=== PATIENT | male | born 1985 | race Caucasian/White ===

== ENCOUNTER 2024-08-22 20:22 | Emergency (ER) | payer MEDICAID, SELFPAY ==
[2024-08-22 20:25] VITALS: BP 164/89; PULSE 87; RESP 18; TEMP 37.8; O2SAT 96; BMI 50.2
[2024-08-22] MEDS: LORazepam 2 mg/mL INJ 1 mL IM (20:37)
[2024-08-22] MEDS: ziprasidone 20 mg/mL SDV IM (20:37)
--- NOTE | 2024-08-22 20:39 | ED_ITS ---
HPI - Overdose 2 General: Chief Complaint: Overdose Stated Complaint: AMS Time Seen by Provider: 08/22/24 20:25 History of Present Illness: 38-year-old man with a history of bipola r disorder hypertension, A-fib, diabetes and morbid obesity who presents the emergency room with altered mental status after smoking marijuana and taking some sort of THC/CBD supplement. He is making animal noises and screaming. Related Data Home Medications Medication Instructions Recorded Confirmed lamotrigine 25 mg tablet 50 mg PO DAILY 06/07/24 06/07/24 Previous Rx's Medication Instructions Recorded acetaminophen 500 mg tablet 500 mg PO Q6H PRN fever or pain 06/07/24 (Tylenol Extra Strength) #30 tabs apixaban 5 mg tablet (Eliquis) 5 mg PO BID #60 tabs 06/07/24 diltiazem HCl 360 mg capsule,24 360 mg PO DAILY #30 caps 06/07/24 hr,extended release liraglutide 0.6 mg/0.1 mL (18 mg/3 1.8 mg (0.3 mL) SUBCUT DAILY #9 mL 06/07/24 mL) subcutaneous pen injector ([employer] 2-Jose Alberto) lisinopril 40 mg tablet 40 mg PO DAILY #30 tabs 06/07/24 omeprazole 40 mg capsule,delayed 40 mg PO DAILY #30 caps 06/07/24 release pregabalin 100 mg capsule 100 mg PO TID #90 caps 06/07/24 Allergies Allergy/AdvReac Type Severity Reaction Status Date / Time metformin Allergy Severe ADR-diarrhea Verified 08/22/24 20:36 and hives bupropion [From Wellbutrin] Allergy Unknown Unknown Verified 08/22/24 20:36 clonidine Allergy Unknown Unknown Verified 08/22/24 20:36 fluoxetine [From Prozac] Allergy Unknown Unknown Verified 08/22/24 20:36 gabapentin Allergy Unknown Unknown Verified 08/22/24 20:36 lurasidone [From Latuda] Allergy Unknown Unknown Verified 08/22/24 20:36 oxycodone [From Percocet] Allergy Unknown Unknown Verified 08/22/24 20:36 paroxetine [From Paxil] Allergy Unknown Unknown Verified 08/22/24 20:36 sertraline [From Zoloft] Allergy Unknown Unknown Verified 08/22/24 20:36 Review of Systems 2 General: Reports: ROS unobtainable due to mental status PFSH ED 2 PFSH: Medical History (Updated 08/23/24 @ 00:13 by Suad Newton MD) Bipolar disorder must establish with psychiatry Essential hypertension GERD (gastroesophageal reflux disease) Neuropathy Atrial fibrillation referral to cardiology Type 2 diabetes mellitus without complications Surgical History (Updated 06/07/24 @ 13:51 by Patrice Linda NP) History of surgery on arm Family History (Updated 06/07/24 @ 13:52 by Patrice Linda NP) Other Diabetes Heart disease Hyperlipidemia Hypertension Denies family history of Clotting disorder Anesthesia complication Bleeding disorder Social History (Updated 06/07/24 @ 13:53 by Patrice Linda NP) Smoking and tobacco/nicotine status: current every day tobacco/nicotine user Quit status (tobacco/nicotine): considering quitting Alcohol intake: current Alcohol intake frequency: holidays/special occasions only Substance/Drug Use: current Lives independently: Yes Marital status: Legally Number of children: 1 Current occupational status: unemployed and disabled Physical Exam 2 Narrative: EXAM NARRATIVE: General: Alert, no acute distress. Skin: Warm, dry. Head: Normocephalic, atraumatic. Neck: Supple, trachea midline. Eye: Extraocular movements are intact. Ears, nose, mouth and throat: mucosa moist. Cardiovascular: Regular, Normal peripheral perfusion. Respiratory: Lungs are clear to auscultation, respirations are non-labored, breath sounds are equal, Symmetrical chest wall expansion. Gastrointestinal: Soft, Nontender, Non distended Musculoskeletal: Normal ROM, no deformity. Neurological: Alert, No focal neurological deficit observed. Psychiatric: Patient is screaming and making animal noises Course 2 Vital Signs: Vital signs: Vital Signs Temperature 100.0 F H 08/22/24 20:25 Pulse Rate 87 08/22/24 20:25 Respiratory Rate 18 08/22/24 20:25 Blood Pressure 164/89 08/22/24 20:25 Pulse Oximetry 96 08/22/24 20:25 Oxygen Delivery Me thod Room Air 08/22/24 20:25 MDM - Overdose Medical Decision Making Lab Review: Laboratory results were reviewed and interpreted by myself the emergency room physician. - Medically cleared. - EKG shows no ischemic changes. - Blood alcohol level is negative, -Tylenol and salicylate levels are negative. - Drug screen is positive for marijuana - No signs of infection, urinalysis clear and white count is not elevated - No anemia. - BUN and creatinine are within normal limits. Assessment and plan: Anxiety reaction secondary to marijuana. - Discharged home - Discussed findings and plan with patient. Answered any questions. - All laboratory values were reviewed and interpreted personally by myself, the ER physician - All imaging was reviewed and interpreted personally by myself, the ER physician. - Evaluation and treatment of this problem were appropriate in the emergency setting Lab Data 08/22/24 22:08 08/22/24 22:33 Laboratory Results WBC 11.11 10^3/uL (3.29-11.43) 08/22/24 22:08 RBC 4.92 10^6/uL (3.85-5.65) 08/22/24 22:08 Hgb 14.10 g/dL (11.27-16.99) 08/22/24 22:08 Hct 44.0 % (37-53) 08/22/24 22:08 MCV 89.4 fl (82-101) 08/22/24 22:08 MCH 28.7 pg (27-33) 08/22/24 22:08 MCHC 32.0 g/dL (30-55) 08/22/24 22:08 RDW 13.3 % (12.1-15.1) 08/22/24 22:08 Plt Count 216 10^3/cmm (157-399) 08/22/24 22:08 MPV 11.3 fL (7.4-10.4) H 08/22/24 22:08 Neut % (Auto) 71.3 % 08/22/24 22:08 Lymph % (Auto) 21.2 % 08/22/24 22:08 Mineral % (Auto) 6.7 % 08/22/24 22:08 Eos % (Auto) 0.2 % 08/22/24 22:08 Baso % (Auto) 0.3 % 08/22/24 22:08 Neut # (Auto) 7.94 10^3/uL (1.8-7.7) H 08/22/24 22:08 Lymph # (Auto) 2.4 10^3/uL (0.8-4.8) 08/22/24 22:08 Mineral # (Auto) 0.7 10^3/uL (0.2-0.9) 08/22/24 22:08 Eos # (Auto) 0.0 10^3/uL (0.0-0.8) 08/22/24 22:08 Baso # (Auto) 0.0 10^3/uL (0.0-0.1) 08/22/24 22:08 Nucleated RBC % (auto) 0 % 08/22/24 22:08 Nucleated RBCs # 0.0 /100WBC 08/22/24 22:08 Sodium 143 mmol/L (136-145) 08/22/24 22:33 Potassium 4.1 mmol/L (3.5-5.1) 08/22/24 22:33 Chloride 105 mmol/L (98-107) 08/22/24 22: Carbon Dioxide 27 mmol/L (22-29) 08/22/24 22:33 Anion Gap 15.1 (5-19) 08/22/24 22:33 BUN 13 mg/dL (6-20) 08/22/24 22:33 Creatinine 0.8 mg/dL (0.7-1.2) 08/22/24 22:33 GFR Calculation 109.4 mL/min (90-130) 08/22/24 22:33 Glucose 114 mg/dL (65-115) 08/22/24 22:33 Calculated Osmolality 297 mOsm/kg (285-295) H 08/22/24 22:33 Calcium 9.6 mg/dL (8.5-10.5) 08/22/24 22:33 Total Bilirubin 0.2 mg/dL (0.15-1.2) 08/22/24 22:33 AST 13 U/L (0-40) 08/22/24 22:33 ALT 14 U/L (0-41) 08/22/24 22:33 Alkaline Phosphatase 103 U/L (40-130) 08/22/24 22:33 Total Protein 6.4 g/dL (6.6-8.7) L 08/22/24 22:33 Albumin 3.9 g/dL (3.5-5.2) 08/22/24 22:33 Globulin 2.5 g/dL (1.3-4.6) 08/22/24 22:33 TSH 0.68 uIU/mL (0.27-4.20) 08/22/24 22:33 Urine Color Yellow (Yellow) 08/22/24 22:59 Urine Appearance Clear (CLEAR) 08/22/24 22:59 Urine pH 6.0 (5-7) 08/22/24 22:59 Ur Specific [place] 1.009 (1.005-1.030) 08/22/24 22:59 Urine Protein 2+ (Negative) A 08/22/24 22:59 Urine Glucose (UA) Trace (Normal) H 08/22/24 22:59 Urine Ketones Negative (Negative) 08/22/24 22:59 Urine Blood Negative (Negative) 08/22/24 22:59 Urine Nitrate Negative (Negative) 08/22/24 22:59 Urine Bilirubin Negative (Negative) 08/22/24 22:59 Urine Urobilinogen 0.2 mg/dL (Negative) 08/22/24 22:59 Ur Leukocyte Esterase Negative (Negative) 08/22/24 22:59 Urine RBC 0-2 /hpf (0-2) 08/22/24 22:59 Urine WBC 0-5 /hpf (0-5) 08/22/24 22:59 Ur Squamous Epith Cells 0-5 /hpf (0-5) 08/22/24 22:59 Amorphous Sediment Not Reportable 08/22/24 22:59 Urine Bacteria None seen /hpf (NONE) 08/22/24 22:59 Hyaline Casts 0-4 /lpf H 08/22/24 22:59 Salicylates < 0.3 mg/dL (3-10) L 08/22/24 22:33 Urine Opiates Screen Negative ng/mL (Negative) 08/22/24 22:59 Acetaminophen < 5.0 ug/mL (10-30) L 08/22/24 22:33 Ur Barbiturates Screen Negative ng/mL (Negative) 08/22/24 22:59 Ur Phencyclidine Scrn Negative ng/mL (Negative) 08/22/24 22:59 Ur Amphetamines Screen Negative ng/mL (Negative) 08/22/24 22:59 U Benzodiazepines Scrn Negative ng/mL (Negative) 08/22/24 22:59 Urine Cocaine Screen Negative ng/mL (Negative) 08/22/24 22:59 U Marijuana (THC) Screen Positive ng/mL (Negative) H 08/22/24 22:59 Ethyl Alcohol < 10 mg/dL (0-10) 08/22/24 22:33 No radiology studies performed this visit Discharge Plan Discharge Patient Disposition: Home Clinical Impression: Anxiety reaction Condition: Stable Prescriptions: No Action lamotrigine 25 mg tablet 50 mg PO DAILY acetaminophen [Tylenol Extra Strength] 500 mg tablet 500 mg PO Q6H PRN (Reason: fever or pain) Qty: 30 0RF lisinopril 40 mg tablet 40 mg PO DAILY Qty: 30 2RF diltiazem HCl 360 mg capsule,extended release 24 hr 360 mg PO DAILY Qty: 30 2RF Eliquis 5 mg tablet 5 mg PO BID Qty: 60 2RF pregabalin 100 mg capsule 100 mg PO TID Qty: 90 2RF omeprazole 40 mg capsule,delayed release(DR/EC) 40 mg PO DAILY Qty: 30 2RF liraglutide [[employer] 2-Jose Alberto] 0.6 mg/0.1 mL (18 mg/3 mL) pen injector 1.8 mg SUBCUT DAILY Qty: 9 2RF Rx Instructions: allergic to metformin Discharge Orders: Discharge ED (Routine); Ordered 08/23/24 Ordered By: Suad Newton Referrals: Patrice Linda FLAP MAKER [Primary Care Provider] - Discharge Diet: Usual diet Discharge Activity: Increase activity as tolerated Patient Instructions: Opioid Safety, Pain Management Activity Restrictions/Additional Instructions: Thank you for choosing [facility] for your healthcare needs today. Please realize this is an emergency room and that we are providing you with a medical screening exam and this may not be complete and all inclusive of all the testing and or work up that you may need to determine your ailment or severity of your illness. You have been screened and evaluated and felt safe for discharge. Health conditions do change or evolve sometimes and as such it is important that you follow up with your Primary Doctor to be re checked, 3-5 days is a general good time frame for follow up. You are always welcome to return to the ED for re assessment if your symptoms are worsening or you have new concerns Coding Level of Care Code ED Trader Fixed Income for Redd Clarke
[2024-08-22 21:50] VITALS: BP 155/86; PULSE 70; O2SAT 97
[2024-08-22 22:17] LABS: Basophils % 0.3 %; Eosinophils % 0.2 %; Lymphocytes # 2.4 10^3/uL (0.8-4.8); Lymphocytes % 21.2 %; Mean Corpuscular Hemoglobin 28.7 pg (27-33); Mean Corpuscular Volume 89.4 fl (82-101); Mean Platelet Volume 11.3 fL (7.4-10.4); Monocytes # 0.7 10^3/uL (0.2-0.9); Monocytes % 6.7 %; Neutrophils # 7.94 10^3/uL (1.8-7.7); Neutrophils % 71.3 %; Nucleated Red Blood Cells % 0 %; Platelet Count 216 10^3/cmm (157-399); Red Blood Count 4.92 10^6/uL (3.85-5.65); Red Cell Distribution Width 13.3 % (12.1-15.1); White Blood Count 11.11 10^3/uL (3.29-11.43)
[2024-08-22 23:06] LABS: Bilirubin Urine Negative (Negative); Blood Urine Negative (Negative); Glucose Urine UA Trace (Normal); Ketones Urine Negative (Negative); Leukocyte Esterase Urine Negative (Negative); Nitrate Urine Negative (Negative); Protein Urine 2+ (Negative); Specific Gravity, Urine 1.009 (1.005-1.030); Urine Appearance Clear (CLEAR); Urine Color Yellow (Yellow); Urobilinogen Urine 0.2 mg/dL (Negative)
[2024-08-22 23:08] LABS: Alanine Aminotransferase 14 U/L (0-41); Albumin Level 3.9 g/dL (3.5-5.2); Alcohol Level < 10 mg/dL (0-10); Alkaline Phosphatase 103 U/L (40-130); Anion Gap 15.1 (5-19); Aspartate Amino Transferase 13 U/L (0-40); Blood Urea Nitrogen 13 mg/dL (6-20); Calcium 9.6 mg/dL (8.5-10.5); Carbon Dioxide 27 mmol/L (22-29); Chloride 105 mmol/L (98-107); Creatinine Clr Calc Pharmacy 193.7412; Globulin 2.5 g/dL (1.3-4.6); Glomerular Filtration Rate 109.4 mL/min (90-130); Glucose 114 mg/dL (65-115); Osmolality Calculated 297 mOsm/kg (285-295); Potassium 4.1 mmol/L (3.5-5.1); Salicylate < 0.3 mg/dL (3-10); Sodium 143 mmol/L (136-145); Thyroid Stimulating Hormone 0.68 uIU/mL (0.27-4.20); Total Bilirubin 0.2 mg/dL (0.15-1.2); Total Protein 6.4 g/dL (6.6-8.7)
[2024-08-22 23:11] LABS: Bacteria Urine None Seen /hpf; Hyaline Casts Urine 0-4 /lpf; RBC Urine 0-2 /hpf (0-2); Squamous Epithelial Cell Urine 0-5 /hpf (0-5); WBC Urine 0-5 /hpf (0-5)
[2024-08-22 23:14] LABS: Amphetamines Screen Urine Negative (Negative); Barbiturates Screen Urine Negative (Negative); Benzodiazepines Screen Urine Negative (Negative); Cocaine Screen Urine Negative (Negative); Opiate Screen Urine Negative (Negative); PCP Screen Urine Negative (Negative); THC Screen Urine Positive (Negative)
[2024-08-22 23:45] LABS: Acetaminophen < 5.0 ug/mL (10-30)
[2024-08-23 04:42] VITALS: BP 145/6; PULSE 78; O2SAT 98
== END 2024-08-23 04:33 | disposition home or self-care (01) ==
PROVIDERS: Emergency Provider Emergency Medicine; PCP Clinical Nurse Specialist Adult Health
DX: F41.1 Generalized anxiety disorder (principal); Z79.01 Long term (current) use of anticoagulants; Z72.0 Tobacco use; I10 Essential (primary) hypertension; E11.40 Type 2 diabetes mellitus with diabetic neuropathy, unspecified
CPT/HCPCS: 36415; 80053; 80306; 80307; 81001; 84443; 85025; 96372; 99284; J2060; J3486

== ENCOUNTER 2024-08-29 16:12 | Outpatient (CLI) | payer MEDICAID, SELFPAY ==
--- NOTE | 2024-08-29 16:19 | XR_ITS ---
WS: [id number] XR ankle LT min 3V* [id number] REASON FOR EXAM: ankle pain FINDINGS: Significant soft tissue swelling over the lateral malleolus. No acute fracture is identified. Bony changes of the medial malleolus compatible with old medial collateral ligamentous injury. No acu te fracture. The joint spaces are intact and well preserved. XR/XR ankle LT min 3V* [id number] IMPRESSION: Soft tissue swelling with no acute fracture or joint abnormality.
== END 2024-08-29 16:13 | disposition home or self-care (01) ==
LOC: RAD 16:18
PROVIDERS: PCP Clinical Nurse Specialist Adult Health; Visit Provider Family Medicine
DX: M25.572 Pain in left ankle and joints of left foot (principal); R93.6 Abnormal findings on diagnostic imaging of limbs
CPT/HCPCS: 73610

== ENCOUNTER → 2024-09-28 09:34 | Outpatient (BNVA) | payer MEDICAID, SELFPAY | PROVIDERS: PCP Clinical Nurse Specialist Adult Health; Visit Provider Podiatrist Foot & Ankle Surgery | DX: E11.8 Type 2 diabetes mellitus with unspecified complications (principal); S93.402A Sprain of unspecified ligament of left ankle, initial encounter; W00.0XXA Fall on same level due to ice and snow, initial encounter | CPT/HCPCS: 99203 ==

== ENCOUNTER 2024-10-18 15:17 | Outpatient (CLI) | payer MEDICAID, SELFPAY ==
--- NOTE | 2024-10-18 16:19 | XR_ITS ---
WS: [id number] XR chest 2V* [id number] REASON FOR EXAM: MUSCULOSKELETAL CHEST PAIN FINDINGS: Heart and mediastinum are within normal limits. Calcified granulomas disease in both hemithoraces. No acute pulmonary parenchymal or pleural abnormality is identified. Bony thorax is intact without focal abnormality. XR/XR chest 2V* [id number] IMPRESSION: No acute chest abnormality.
== END 2024-10-18 15:18 | disposition home or self-care (01) ==
LOC: RAD 15:21
PROVIDERS: PCP Clinical Nurse Specialist Adult Health
DX: R07.89 Other chest pain (principal); D71 Functional disorders of polymorphonuclear neutrophils
CPT/HCPCS: 71046

== ENCOUNTER 2024-11-27 07:04 | Outpatient (CLI) | payer MEDICAID, SELFPAY ==
--- NOTE | 2024-11-27 07:11 | USCV_ITS ---
Marcel Corbett Age: 38 Gender: M : 1985 Exam Date: 11/27/2024 07:38 Ordering Phys: November BOTTOM BRUSHER Technologist: Exam Location: [facility] Indication: sob cariomyopathy BP: 159 / 80 HR: 146 Rhythm: Sinus Technical Quality: Adequate MEASUREMENTS (Male / Female) Normal Values 2D ECHO LV Diastolic Diameter PLAX 5.0 cm 4.2 - 5.9 / 3.9 - 5.3 cm IVS Diastolic Thickness 1.5 cm 0.6 - 1.0 / 0.6 - 0.9 cm IVS Systolic Thickness 2.0 cm LVPW Diastolic Thickness 1.3 cm 0.6 - 1.0 / 0.6 - 0.9 cm LVPW Systolic Thickness 2.2 cm LVOT Diameter 2.1 cm LV Ejection Fraction 2D Teich 69.4 % LV Ejection Fraction MOD 4C 62.2 % LV Ejection Fraction MOD 2C 57.9 % LV Ejection Fraction 2C AL 58.1 % LA Diameter 4.8 cm Aorta at Sinotubular Diameter 3.6 cm M-MODE LA Ao Ratio MM 1.7 AV Cusp Separation MM 2.5 cm DOPPLER AV Peak Velocity 100.3 cm/s LVOT Peak Velocity 80.0 cm/s AV Area Cont Eq vti 3.5 cm squared AV Area Cont Eq pk 2.8 cm squared MV Peak Velocity 121.0 cm/s MV Area PHT 3.5 cm squared Mitral E to A Ratio 1.1 TV Peak Velocity 190.0 cm/s TR Peak Velocity 247.0 cm/s TR Peak Gradient 24.4 mmHg TV Peak E Velocity 85.0 cm/s PV Peak Velocity 152.0 cm/s FINDINGS Left Ventricle Normal left ventricular size, systolic function and wall thickness, with no regional wall motion abnormalities. Left ventricular ejection fraction is estimated at 60 %. Grade I/IV diastolic dysfunction (abnormal relaxation filling pattern), normal to mildly elevated filling pressures. Right Ventricle Normal right ventricular size and systolic function. Right Atrium The right atrium is normal in size. Left Atrium The left atrium is normal in size. Mitral Valve Mitral valve not well visualized. Aortic Valve Aortic valve not well visualized. Tricuspid Valve Not well visualized Pulmonic Valve Pulmonic valve not well visualized. Pericardium Normal pericardium without effusion. Aorta Normal ascending aorta dimension. IVC The inferior vena cava appears normal. CONCLUSIONS Normal left ventricular size, systolic function and wall thickness, with no regional wall motion abnormalities. Left ventricular ejection fraction is estimated at 60 %. Grade I/IV diastolic dysfunction (abnormal relaxation filling pattern), normal to mildly elevated filling pressures. Due to poor quality images valves cannot be well visualized. There is no pericardial effusion. Right atrial pressure is around 5 mm of mercury. Jennifer Jeff MD (Electronically Signed) Final Date: 10 December 2024 16:04 S
--- NOTE | 2024-11-27 07:42 | US_ITS ---
WS: [id number] ULTRASOUND SOFT TISSUES RIGHT neck HISTORY: Nontoxic Goiter COMPARISON: None available. TECHNIQUE: 2-D and color Doppler imaging is submitted. No soft tissue masses identified by ultrasound. This may be due to body habitus. The ultrasound in the region of the thyroid is very limited. US/US soft tissue head neck [id number] IMPRESSION: No neck mass identified by ultrasound.
== END 2024-11-27 07:05 | disposition home or self-care (01) ==
PROVIDERS: PCP Clinical Nurse Specialist Adult Health
DX: E04.9 Nontoxic goiter, unspecified (principal); I51.7 Cardiomegaly; R93.1 Abnormal findings on diagnostic imaging of heart and coronary circulation
CPT/HCPCS: 76536; C8929

== ENCOUNTER → 2025-07-30 09:55 | Outpatient (BNVA) | payer MEDICAID, SELFPAY | PROVIDERS: PCP Family Medicine; Visit Provider Internal Medicine Cardiovascular Disease | DX: I48.0 Paroxysmal atrial fibrillation (principal); Z79.01 Long term (current) use of anticoagulants; Z01.810 Encounter for preprocedural cardiovascular examination; E11.9 Type 2 diabetes mellitus without complications; Z79.85 Long-term (current) use of injectable non-insulin antidiabetic drugs; F17.210 Nicotine dependence, cigarettes, uncomplicated; R07.9 Chest pain, unspecified; I49.8 Other specified cardiac arrhythmias | CPT/HCPCS: 93005; 99204 ==

== ENCOUNTER 2025-08-08 07:43 | Outpatient (CLI) | payer MEDICAID, SELFPAY ==
--- NOTE | 2025-08-08 | ECG_ITS ---
[email or web address] Test Date: 2025-08-08 Pat Name: Marcel Corbett Department: Room: Gender: Male Psychiatric Technician Assistant: : 1985 Requested By: Mic Garcia Order Number: [id number] Garcia MD: EMILI GARCIA Interpretive Statements Lung unchanged pre/post procedure; Intraprocedure shortess of breath; Symptoms resoled by discharge NOTE: Please note that this is the electrocardiogram portion of the Lexiscan/Sestamibi stress test. The perfusion scan will be documented separately. DATA: Baseline heart rate was 67 beats per minute. Baseline blood pressure was 152/84 millimeters of mercury. Target heart rate was 183. Maximum heart rate achieved was 83. which was 45% of the predicted target heart rate. Maximum blood pressure was 169/91 millimeters of mercury. The reason for ending the test was completion of the protocol. The patient did not experience any symptoms. ELECTROCARDIOGRAM: BASELINE: Sinus rhythm. Normal axis. Otherwise, no ST-T changes suggestive of ischemia noted. No arrhythmia noted. EXERCISE: After Lexiscan injection, no ST-T changes suggestive of ischemic noted. No arrhythmia noted. CONCLUSION: Please note due to baseline abnormality of the EKG specificity and sensitivity of the EKG portion of LexiScan MIBI stress test will be low 1. EKG not suggestive of ischemia 2. Lexiscan injection unremarkable. 3. Perfusion scan will be documented separately. Electronically Signed On 08-16-2025 16:08:16 COUNTY SUPERVISOR by EMILI GARCIA [email or web address]
[2025-08-08 08:44] VITALS: BMI 52.4
--- NOTE | 2025-08-08 08:44 | NMCV_ITS ---
NM taryn perf SPECT r/s* [id number] Marcel Corbett Age: 39 Gender: M : 1985 Exam Date: 08/08/2025 08:54 Ordering Phys: Mic Garcia MD ([email or web address]) Technologist: PEE Mendez Exam Location: [facility] Indications: cp STRESS TEST Please see separate stress test report in [facility] for full findings IMAGE PROTOCOL Rest/Stress 1 Lexiscan Day Radiopharmaceutical Dose (mCi) Administration Site Administered by Rest: Tc-99m 10.7 IV EPE Sung Sestamibi Stress:Tc-99m 33 IV PEE Sung Sestamibi Rest: 08-Aug-2025 60 Discovery 630 Stress: 08-Aug-2025 30 Discovery 630 0.4mg Lexiscan. Supine position only as patient was unable to lay prone. SPECT RESULTS Technical Quality: Good Raw Data Analysis: Normal Image Corrections: No attenuation or motion correction applied Summed Stress Score: 4 Summed Rest Score: 0 Summed Difference Score: 4 PERFUSION FINDINGS There appeared to be basal distal inferior wall fixed perfusion defect suggestive of old myocardial infarction versus scarring in RCA territory however in the absence of wall motion abnormality cannot rule out artifact. There appeared to be basal to mid anterior and anterolateral fixed perfusion defect surrounded by medium sized area of mild reversibility suggestive of old myocardial infarction versus scarring surrounded by medium sized area of mild ischemia in LAD and diagonal branch territory. In the absence of wall motion abnormality cannot rule out artifact. Clinical correlation advised. FUNCTIONAL RESULTS (calculated via Gated SPECT) Stress Image LV EF (%): 62 Stress EDV (mL):183 TID: 0.99 Stress ESV (mL):69 FUNCTIONAL FINDINGS: There is normal left ventricular systolic function. IMPRESSIONS There appeared to be basal distal inferior wall fixed perfusion defect suggestive of old myocardial infarction versus scarring in RCA territory however in the absence of wall motion abnormality cannot rule out artifact. There appeared to be basal to mid anterior and anterolateral fixed perfusion defect surrounded by medium sized area of mild reversibility suggestive of old myocardial infarction versus scarring surrounded by medium sized area of mild ischemia in LAD and diagonal branch territory. In the absence of wall motion abnormality cannot rule out artifact. Clinical correlation advised. Jennifer Jeff MD (Electronically Signed) Final Date: 08 August 2025 12:36 S
[2025-08-08 09:57] VITALS: BP 161/78; PULSE 73
== END 2025-08-08 07:44 | disposition home or self-care (01) ==
LOC: CDL 07:47
PROVIDERS: PCP Family Medicine; Visit Provider Internal Medicine Cardiovascular Disease
DX: R07.9 Chest pain, unspecified (principal); R93.1 Abnormal findings on diagnostic imaging of heart and coronary circulation
CPT/HCPCS: 36415; 78452; 93017; 96374; A9500; J2785